=== PATIENT | female | born 1955 | race Caucasian/White ===

== ENCOUNTER → 2017-04-14 15:28 | Outpatient (CLI) | payer OTHER, SELFPAY ==
--- NOTE | 2017-04-14 15:31 | HPBD_ITS ---
STUDY: DUAL ENERGY X-RAY ABSORPTIOMETRY / DXA REASON FOR EXAM: Female, 61 years old. The patient is postmenopausal. No loss of height. TECHNIQUE: Bone Mineral Density (BMD) measurements of lumbar spine and bilateral hips were obtained. COMPARISON: Comparison is made with prior study dated June 20, 2012. FINDINGS: Lumbar Spine (L1-L4): g/cm2 (0.982) / T-score (-1.7) / Z-score (-0.5) Findings are suggestive of osteopenia with a moderate fracture risk. Left Femur Total: g/cm2 (0.668) / T-score (-2.7) / Z-score (-1.8) Left Femoral Neck: g/cm2 (0.706) / T-score (-2.4) / Z-score (-1.2) Right Femur Total: g/cm2 (0.667) / T-score (-2.7) / Z-score (-1.8) Right Femoral Neck: g/cm2 (0.748) / T-score (-2.1) / Z-score (-0.9) The T-Scores on the most recent prior examination were: Lumbar Spine (L1-L4): There has been worsening of bone density since the previous examination. Left Femur Total: which represents a worsening of 3.6%. Right Femur Total: which represents a worsening of 4.9%. HPBD/Dexa Bone Density Study (HP) IMPRESSION: The patient is considered osteoporotic as outlined below according to World Gee Organization (WHO) criteria with a high fracture risk. There has been worsening of bone density since the previous examination. Reference Information: The T-score is the number of standard deviations above or below the standard which is normal for young adults at their peak bone mineral density. The World Health Organization (WHO) interprets the T-scores as follows: Above -1 Normal bone density Between -1 and -2.5 Osteopenia Equal to / or below -2.5 Osteoporosis As a practical clinical guideline, osteopenia may be graded as follows: Mild -1 through -1.5 Moderate -1.6 through -2.0 Severe -2.1 through -2.4 The Z-score is the number of standard deviations above or below age-matched controls. A Z-score of less than -1.5 would be considered abnormal. References: 1. NIH Osteoporosis and Related Bone Diseases http://www.osteo.org 2. International Society for Clinical Densitometry http://www.iscd.org 3. National Osteoporosis Foundation http://www.nof.org Electronically Signed: González Aldridge MD at 15:52 EST Tel [phone], Service support ,
== END ==
PROVIDERS: Family Provider Family Medicine; PCP Family Medicine; Visit Provider Family Medicine
DX: M89.9 Disorder of bone, unspecified (principal); M94.9 Disorder of cartilage, unspecified
CPT/HCPCS: 77080

== ENCOUNTER → 2017-08-09 09:28 | Outpatient (CLI) | payer OTHER, SELFPAY ==
[2017-08-09 13:12] LABS: Anion Gap 8 (5-15); BUN 16 mg/dL (7-18); BUN/Creat Ratio 20.8 RATIO (10-20); Calcium,Total 8.8 mg/dL (8.5-10.1); Chloride 106 mmol/L (98-107); Creatinine, Serum 0.77 mg/dL (0.55-1.02); EST Glomerular Filtration Rate 81 mL/min (>60); Est Glom Filt Rate - Afr Amer 98 mL/min (>60); Glucose 95 mg/dL (74-106); Potassium 3.9 mmol/L (3.5-5.1); Sodium Level 141 mmol/L (136-145); Thyroid Stim Hormone (TSH) 0.89 uIU/mL (0.358-3.74)
[2017-08-10 08:40] LABS: Vitamin D,25 Hydroxy 46.1 ng/mL (29.95-100.01)
[2017-08-11 09:28] LABS: Hep C Antibodies <0.1 s/co ratio (0.0-0.9)
== END ==
PROVIDERS: Family Provider Family Medicine; PCP Family Medicine; Visit Provider Family Medicine
DX: M89.9 Disorder of bone, unspecified (principal); Z11.59 Encounter for screening for other viral diseases; M94.9 Disorder of cartilage, unspecified
CPT/HCPCS: 36415; 80048; 82306; 82330; 84443; 86803

== ENCOUNTER → 2018-01-23 09:16 | Outpatient (CLI) | payer OTHER, SELFPAY ==
[2018-01-23 10:32] LABS: Hematocrit 40.1 % (37-47); Hemoglobin 12.9 g/dl (12.0-15.0); Mean Corp Hgb Conc 32.2 g/gl (32-36); Mean Corpuscular Volume 93.3 fL (81-99); Mean Platelet Vol. 9.3 fl (6.2-12.0); Platelet Count 262 K/mm3 (150-450); RBC Distribution Width CV 12.4 % (11.6-14.6); RBC Distribution Width SD 41.7 fl (35.1-43.9); White Blood Count 4.3 K/mm3 (4.4-11.0)
[2018-01-23 10:41] LABS: Scan Indicated on CBC? Y/N NO
[2018-01-23 10:52] LABS: Vitamin D,25 Hydroxy 48.4 ng/mL (29.95-100.01)
[2018-01-23 11:11] LABS: Anion Gap 10 (5-15); BUN 13 mg/dL (7-18); BUN/Creat Ratio 18.3 RATIO (10-20); Calcium,Total 8.6 mg/dL (8.5-10.1); Chloride 106 mmol/L (98-107); Cholesterol 176 mg/dL (200); Creatinine, Serum 0.71 mg/dL (0.55-1.02); EST Glomerular Filtration Rate 89 mL/min (>60); Est Glom Filt Rate - Afr Amer 108 mL/min (>60); Glucose 89 mg/dL (74-106); High Density Lipoprotein 88 mg/dL; Potassium 4.3 mmol/L (3.5-5.1); Sodium Level 143 mmol/L (136-145); Triglycerides 68 mg/dL; Very Low Density Lipoprotein 14 mg/dL (5-40)
== END ==
PROVIDERS: Family Provider Family Medicine; PCP Family Medicine; Referring Provider Family Medicine; Visit Provider Family Medicine
DX: M81.0 Age-related osteoporosis without current pathological fracture (principal); Z13.220 Encounter for screening for lipoid disorders; E55.9 Vitamin D deficiency, unspecified
CPT/HCPCS: 36415; 80048; 80061; 82306; 85027

== ENCOUNTER → 2019-02-03 09:03 | Outpatient (CLI) | payer OTHER, SELFPAY ==
[2019-02-03 11:25] LABS: Anion Gap 6 (5-15); BUN 14 mg/dL (7-18); BUN/Creat Ratio 22.3 RATIO (10-20); Calcium,Total 8.7 mg/dL (8.5-10.1); Chloride 106 mmol/L (98-107); Cholesterol 193 mg/dL (200); Creatinine, Serum 0.63 mg/dL (0.55-1.02); EST Glomerular Filtration Rate 102 mL/min (>60); Est Glom Filt Rate - Afr Amer 124 mL/min (>60); Glucose 101 mg/dL (74-106); High Density Lipoprotein 103 mg/dL; Sodium Level 140 mmol/L (136-145); Thyroid Stim Hormone (TSH) 0.83 uIU/mL (0.358-3.74); Triglycerides 42 mg/dL; Very Low Density Lipoprotein 8 mg/dL (5-40)
[2019-02-05 09:45] LABS: Vitamin D,25 Hydroxy 50.9 ng/mL (29.95-100.01)
== END ==
PROVIDERS: Family Provider Family Medicine; PCP Family Medicine; Referring Provider Family Medicine; Visit Provider Family Medicine
DX: F32.9 Major depressive disorder, single episode, unspecified (principal); Z13.220 Encounter for screening for lipoid disorders; Z13.29 Encounter for screening for other suspected endocrine disorder; E55.9 Vitamin D deficiency, unspecified
CPT/HCPCS: 36415; 80048; 80061; 82306; 84443

== ENCOUNTER → 2019-02-14 15:38 | Outpatient (CLI) | payer OTHER, SELFPAY ==
--- NOTE | 2019-02-14 15:44 | RAD_ITS ---
STUDY: X-RAY CHEST REASON FOR EXAM: Female, 63 years old. Chronic cough. TECHNIQUE: 2 views COMPARISON: Prior chest radiograph of April 11, 2017 FINDINGS: The lungs are clear and expanded. There is no demonstrated pleural abnormality. Normal size heart. Normal mediastinum and janeth. Normal visualized pulmonary arteries. Normal visualized aortic arch and descending thoracic aorta. Normal visualized thoracic spine. Normal visualized ribs, clavicles, and shoulders. There is no demonstrated abnormality of the visualized soft tissue structures of the upper abdomen. RAD/Chest PA and Lateral IMPRESSION: Normal x-ray examination of the chest. Electronically Signed: Mayuri Campo MD at 16:40 EST , Service support ,
== END ==
PROVIDERS: Family Provider Family Medicine; PCP Family Medicine; Referring Provider Family Medicine; Visit Provider Family Medicine
DX: R05 Cough (principal)
CPT/HCPCS: 71046

== ENCOUNTER → 2019-10-13 10:53 | Outpatient (CLI) | payer OTHER, SELFPAY | PROVIDERS: PCP Family Medicine; Referring Provider Family Medicine; Visit Provider Family Medicine | DX: R68.89 Other general symptoms and signs (principal) | CPT/HCPCS: 87635; U0003 ==

== ENCOUNTER → 2020-03-12 08:22 | Outpatient (CLI) | payer OTHER, SELFPAY ==
--- NOTE | 2020-03-12 08:28 | BD_ITS ---
STUDY: DUAL ENERGY X-RAY ABSORPTIOMETRY / DXA REASON FOR EXAM: Female, 64 years old. [employer] -- TAKES CALCIUM AND MULTIVITAMIN -- HX OF TAKING FOSAMAX OFF AND ON -- DOES MODERATE AMOUNT OF EXERCISE -- FOREST OF 0.25 INCH TECHNIQUE: Bone Mineral Density (BMD) measurements of lumbar spine and bilateral hips were obtained. COMPARISON: Comparison is made with prior study dated 04/14/2017. FINDINGS: Lumbar Spine (L1-L4): g/cm2 (1.036) / T-score (-1.1) / Z-score (0.3) Findings are suggestive of osteopenia with a low fracture risk. Left Femur Total: g/cm2 (0.698) / T-score (-2.5) / Z-score (-1.4) Left Femoral Neck: g/cm2 (0.736) / T-score (-2.2) / Z-score (-0.8) Right Femur Total: g/cm2 (0.708) / T-score (-2.4) / Z-score (-1.3) Right Femoral Neck: g/cm2 (0.807) / T-score (-1.7) / Z-score (-0.3) The T-Scores on the most recent prior examination were: Lumbar Spine (L1-L4): There has been improvement of bone density since the previous examination. Left Femur Total: which represents an improvement of 4.5%. Right Femur Total: which represents an improvement of 6.1%. BD/Dexa Bone Density Study IMPRESSION: The patient is considered osteoporotic as outlined below according to World Gee Organization (WHO) criteria with a high fracture risk. There has been improvement of bone density since the previous examination. Reference Information: The T-score is the number of standard deviations above or below the standard which is normal for young adults at their peak bone mineral density. The World Health Organization (WHO) interprets the T-scores as follows: Above -1 Normal bone density Between -1 and -2.5 Osteopenia Equal to / or below -2.5 Osteoporosis As a practical clinical guideline, osteopenia may be graded as follows: Mild -1 through -1.5 Moderate -1.6 through -2.0 Severe -2.1 through -2.4 The Z-score is the number of standard deviations above or below age-matched controls. A Z-score of less than -1.5 would be considered abnormal. References: 1. NIH Osteoporosis and Related Bone Diseases www osteo.org 2. International Society for Clinical Densitometry www iscd.org 3. National Osteoporosis Foundation www nof.org Electronically Signed: González Aldridge, at 10:54 EST , Service support ,
== END ==
PROVIDERS: PCP Family Medicine; Referring Provider Family Medicine; Visit Provider Family Medicine
DX: M81.0 Age-related osteoporosis without current pathological fracture (principal)
CPT/HCPCS: 77080